=== PATIENT | female | born 1950 | race Caucasian/White ===

== ENCOUNTER 2017-04-26 20:16 | Inpatient (IN) | payer MEDICARE, BC ==
[~2017-04-26] VITALS: Ht 160 cm; Wt 108.9 kg
[2017-04-27] MEDS ORDERED: ADVAIR 250/501 DISK INH (02:48)
[2017-04-27] MEDS ORDERED: PERCOCET 5-3251 TAB PO (02:50)
[2017-04-27] MEDS ORDERED: ZOFRAN ODT4 MG/UDTAB PO (02:51)
[2017-04-27] MEDS ORDERED: VENTOLIN HFA18 GM INH (02:52)
[2017-04-27] MEDS ORDERED: LINEZOLID600 MG PO (02:53)
[2017-04-27] MEDS ORDERED: CLEOCIN HCL300 MG PO (02:54)
[2017-04-27] MEDS ORDERED: DOXYCYCLINE HY100 M2 PO (02:55)
[2017-04-27 12:23] VITALS: Ht 160 cm; Wt 108.9 kg
[2017-04-28 08:19] VITALS: BP 132/68
[2017-04-28] MEDS ORDERED: HYDROCODON-ACE1 EAC7 PO (14:00)
[2017-04-28] MEDS ORDERED: XANAX1 MG PO (14:00)
== END 2017-04-28 16:37 | disposition home or self-care (01) | DRG 603 ==
LOC: D.MS 20:16
PROVIDERS: ADMIT Surgery
DX: L03.317 Cellulitis of buttock (principal); Z68.41 Body mass index [BMI] 40.0-44.9, adult; B95.62 Methicillin resistant Staphylococcus aureus infection as the cause of diseases classified elsewhere; E66.01 Morbid (severe) obesity due to excess calories; J44.9 Chronic obstructive pulmonary disease, unspecified